=== PATIENT | female | born 2000 | race African-American/Black ===

== ENCOUNTER 2020-06-11 10:12 | Emergency (ER) | payer MEDICAID ==
[~2020-06-11] VITALS: Ht 165.1 cm; Wt 59.1 kg
[2020-06-11 10:51] LABS: BASOPHILS % (AUTO) 0.9 % (0.0-2.0); EOSINOPHILS % (AUTO) 1.3 % (1.0-6.0); HEMATOCRIT 34.3 % (36-46); HEMOGLOBIN 10.9 g/dL (12.0-16.0); LYMPHOCYTES # (AUTO) 1.9 K/uL (1.0-4.8); LYMPHOCYTES % (AUTO) 47.7 % (22.0-44.0); MEAN CORPUSCULAR HEMOGLOBIN 21.8 pg (26.0-34.0); MEAN CORPUSCULAR HGB CONC 31.7 G/dL (31.0-37.0); MEAN CORPUSCULAR VOLUME 69 fL (80-100); MONOCYTES # (AUTO) 0.3 K/uL (0.1-1.0); MONOCYTES % (AUTO) 7.2 % (2.0-9.0); NEUTROPHILS # (AUTO) 1.7 K/uL (1.8-7.7); NEUTROPHILS % (AUTO) 42.9 % (40.0-70.0); PLATELET COUNT (AUTO) 200 K/uL (150-450); RED BLOOD CELL COUNT(AUTO) 4.99 MIL/uL (4.00-5.20); RED CELL DISTRIBUTION WIDTH 15.8 % (11.5-14.5)
[2020-06-11 11:00] LABS: ANION GAP 6 mmol/L (8-16); CALCIUM, TOTAL 8.7 mg/dL (8.8-10.5); CARBON DIOXIDE 24 mmol/L (22-29); CHLORIDE 106 mmol/L (98-107); CREATININE 1.03 mg/dL (0.60-1.30); GLOMERULAR FILTR. RATE CALC > 60 mL/min (>60); GLUCOSE,RANDOM 111 mg/dL (70-110); POTASSIUM 3.2 mmol/L (3.5-5.1); SODIUM SERUM 136 mmol/L (136-145); UREA NITROGEN, BLOOD 7 mg/dL (7-18)
[2020-06-11 11:11] LABS: ALANINE AMINOTRANSFERASE 16 U/L (12-78); ALBUMIN 3.1 g/dL (3.4-5.0); ALKALINE PHOSPHATASE 59 U/L (46-116); ASPARTATE AMINOTRANSFERASE 27 U/L (15-37); BILIRUBIN,TOTAL 0.1 mg/dL (0.1-1.0); HCG,QUANTITATIVE < 1 mIU/mL (0-6); LIPASE 233 U/L (73-393); TOTAL PROTEIN, SERUM 7.5 g/dL (6.4-8.2)
[2020-06-11 11:37] LABS: APPEARANCE,URINE CLOUDY (CLEAR); GLUCOSE, URINE (UA) NEGATIVE (NEGATIVE); KETONES,URINE TRACE mg/dL (NEGATIVE); LEUKOCYTE ESTERASE ,URINE SMALL (NEGATIVE); NITRATE,URINE NEGATIVE (NEGATIVE); OCCULT BLOOD,URINE SMALL (NEGATIVE); PROTEIN,URINE NEGATIVE (NEGATIVE)
[2020-06-11 11:40] LABS: BILIRUBIN,URINE PRELIM. POSITIVE (NEGATIVE)
[2020-06-11 11:55] LABS: BACTERIA,URINE None Seen /HPF (None Seen); RBC,URINE 0-2 /HPF (0-2); SQUAMOUS EPITHELIAL CELL,UR Moderate /LPF (None Seen); WBC,URINE 0-2 /HPF (0-5)
[2020-06-11] MEDS ORDERED: PB/HYOSCY/ATR/SCOP/LIDO/MAALOX 55 ML BOTTLE PO ONE (12:15)
[2020-06-11] MEDS ORDERED: KETOROLAC TROMETHAMINE 60 MG/2 ML VIAL IM ONE (14:00)
[2020-06-11 14:49] VITALS: BP 112/69
== END 2020-06-11 15:06 | disposition home or self-care (01) ==
LOC: EMS 10:24
DX: D64.9 Anemia, unspecified (principal); R10.11 Right upper quadrant pain; R10.13 Epigastric pain; M54.9 Dorsalgia, unspecified
CPT/HCPCS: 36415; 76700; 80053; 81001; 83690; 84702; 85025; 96372; 99285; J1885

== ENCOUNTER 2020-08-20 02:29 | Emergency (ER) | payer MEDICAID ==
[~2020-08-20] VITALS: Ht 170.2 cm; Wt 59.1 kg
[2020-08-20 05:30] VITALS: BP 121/64
== END 2020-08-20 06:04 | disposition home or self-care (01) ==
LOC: EMS 02:29
DX: F41.9 Anxiety disorder, unspecified (principal); R07.89 Other chest pain
CPT/HCPCS: 93005

== ENCOUNTER 2021-04-15 07:25 | Emergency (ER) | payer MEDICAID ==
[~2021-04-15] VITALS: Ht 165.1 cm; Wt 54.5 kg
[2021-04-15 07:28] VITALS: BP 115/68
== END 2021-04-15 08:12 | disposition home or self-care (01) ==
LOC: EMS 07:25
DX: T16.1XXA Foreign body in right ear, initial encounter (principal); W45.8XXA Other foreign body or object entering through skin, initial encounter; Y93.89 Activity, other specified; Y92.89 Other specified places as the place of occurrence of the external cause; Y99.8 Other external cause status
CPT/HCPCS: 99281; Z7502

== ENCOUNTER 2023-01-04 17:18 | Emergency (ER) | payer MEDICAID ==
[~2023-01-04] VITALS: Ht 170.2 cm; Wt 63.6 kg
[2023-01-04] MEDS ORDERED: KETOROLAC TROMETHAMINE 30 MG/ML VIAL IVP ONE (18:30)
[2023-01-04] MEDS ORDERED: METOCLOPRAMIDE HCL 5 MG/ML 2 ML VIAL IVP ONE (18:30)
[2023-01-04] MEDS ORDERED: DiphenhydrAMINE HCL 50 MG/ML VIAL IVP ONE (18:30)
[2023-01-04] MEDS ORDERED: SODIUM CHLORIDE 0.9% 1,000 ML IV ONE (18:30)
[2023-01-04 20:05] VITALS: BP 132/72
== END 2023-01-04 20:22 | disposition home or self-care (01) ==
LOC: EMS 17:21
DX: R51.9 Headache, unspecified (principal)
CPT/HCPCS: 99284; 96374; 96375; 96361; J1200; J1885; J2765; J7030

== ENCOUNTER 2023-06-26 09:47 | Emergency (ER) | payer MEDICAID ==
[~2023-06-26] VITALS: Ht 165.1 cm; Wt 61.4 kg
[2023-06-26 09:48] VITALS: TEMP 97.6
[2023-06-26 12:20] VITALS: BP 115/75; PULSE 85; RESP 18
[2023-06-26] MEDS ORDERED: MECL-167 PO (12:25)
== END 2023-06-26 12:52 | disposition home or self-care (01) ==
LOC: EMS 09:47
DX: R42 Dizziness and giddiness (principal); G47.00 Insomnia, unspecified
CPT/HCPCS: 70450; 99284

== ENCOUNTER 2023-07-27 13:33 | Emergency (ER) | payer MEDICAID ==
[~2023-07-27] VITALS: Ht 165.1 cm; Wt 69.5 kg
[~2023-07-27 13:33] MED LIST: MECL-226 PO
[2023-07-27 14:20] VITALS: TEMP 98.8
[2023-07-27] MEDS ORDERED: CEPH-558 PO (15:36)
[2023-07-27] MEDS ORDERED: ACET-2080 PO ×2 (15:36→16:44)
[2023-07-27] MEDS ORDERED: IBUP-1554 PO (15:36)
[2023-07-27 16:00] VITALS: BP 124/71; PULSE 71; RESP 17
[2023-07-27] MEDS ORDERED: ACETAMINOPHEN/CODEINE 300-30 MG TABLET PO ONE (16:00)
== END 2023-07-27 16:09 | disposition home or self-care (01) ==
LOC: EMS 13:36
DX: H72.92 Unspecified perforation of tympanic membrane, left ear (principal); H60.91 Unspecified otitis externa, right ear
CPT/HCPCS: 99283

== ENCOUNTER 2023-07-31 10:05 | Emergency (ER) | payer MEDICAID ==
[~2023-07-31] VITALS: Ht 162.6 cm; Wt 63.6 kg
[~2023-07-31 10:05] MED LIST changes: +ACET-2080 PO; +CEPH-558 PO; +IBUP-1554 PO
[2023-07-31 10:21] VITALS: TEMP 98.5
[2023-07-31] MEDS ORDERED: IBUPROFEN 600 MG TABLET PO ONE (11:30)
[2023-07-31 11:48] LABS: BASOPHILS % (AUTO) 1.5 % (0.0-2.0); EOSINOPHILS % (AUTO) 1.7 % (1.0-6.0); HEMATOCRIT 37.5 % (36-46); HEMOGLOBIN 11.8 g/dL (12.0-16.0); LYMPHOCYTES # (AUTO) 1.9 K/uL (1.0-4.8); LYMPHOCYTES % (AUTO) 39.1 % (22.0-44.0); MEAN CORPUSCULAR HEMOGLOBIN 21.6 pg (26.0-34.0); MEAN CORPUSCULAR HGB CONC 31.3 G/dL (31.0-37.0); MEAN CORPUSCULAR VOLUME 69 fL (80-100); MONOCYTES # (AUTO) 0.4 K/uL (0.1-1.0); MONOCYTES % (AUTO) 7.4 % (2.0-9.0); NEUTROPHILS # (AUTO) 2.5 K/uL (1.8-7.7); NEUTROPHILS % (AUTO) 50.3 % (40.0-70.0); PLATELET COUNT (AUTO) 246 K/uL (150-450); RED BLOOD CELL COUNT(AUTO) 5.45 MIL/uL (4.00-5.20); RED CELL DISTRIBUTION WIDTH 17.1 % (11.5-14.5)
[2023-07-31 11:49] LABS: APPEARANCE,URINE CLEAR (CLEAR); BILIRUBIN,URINE NEGATIVE (NEGATIVE); COLOR,URINE COLORLESS (YELLOW); GLUCOSE, URINE (UA) NEGATIVE (NEGATIVE); KETONES,URINE NEGATIVE (NEGATIVE); LEUKOCYTE ESTERASE ,URINE NEGATIVE (NEGATIVE); NITRATE,URINE NEGATIVE (NEGATIVE); OCCULT BLOOD,URINE NEGATIVE (NEGATIVE); PROTEIN,URINE NEGATIVE (NEGATIVE); SPECIFIC GRAVITIY, URINE 1.004 (1.003-1.030); UROBILINOGEN,URINE <=1.0 mg/dL (<=1.0)
[2023-07-31 11:57] LABS: ANION GAP 8 mmol/L (8-16); CALCIUM, TOTAL 9.2 mg/dL (8.8-10.5); CARBON DIOXIDE 27 mmol/L (22-29); CHLORIDE 102 mmol/L (98-107); CREATININE 0.62 mg/dL (0.60-1.30); GLOMERULAR FILTR. RATE CALC > 60 mL/min (>60); GLUCOSE,RANDOM 81 mg/dL (70-110); POTASSIUM 3.8 mmol/L (3.5-5.1); SODIUM SERUM 137 mmol/L (136-145); UREA NITROGEN, BLOOD 10 mg/dL (7-18)
[2023-07-31 12:11] LABS: ALBUMIN 3.6 g/dL (3.4-5.0); ALKALINE PHOSPHATASE 70 U/L (46-116); ASPARTATE AMINOTRANSFERASE 20 U/L (15-37); BILIRUBIN,TOTAL 0.3 mg/dL (0.1-1.0); HCG,QUANTITATIVE < 1 mIU/mL (0-6); LIPASE 62 U/L (16-77); TOTAL PROTEIN, SERUM 8.1 g/dL (6.4-8.2)
[2023-07-31 12:14] LABS: RBC MORPHOLOGY COMMENT ABNORMAL RBC MORPH
[2023-07-31 13:12] LABS: ALANINE AMINOTRANSFERASE 7 U/L (12-78)
[2023-07-31 16:15] VITALS: BP 115/70; PULSE 75; RESP 12
== END 2023-07-31 16:55 | disposition home or self-care (01) ==
LOC: EMS 10:05
DX: R10.31 Right lower quadrant pain (principal)
CPT/HCPCS: 74176; 80053; 81003; 83690; 84702; 85025; 99284